=== PATIENT | male | born 1960 | race African-American/Black ===

== ENCOUNTER 2016-11-19 11:54 | Emergency (ER) | payer OTHER ==
[2016-11-19 12:08] VITALS: RESP 16; TEMP 97.3
--- NOTE | 2016-11-19 12:44 | EDPHY ---
H & P Time Seen by Provider: 11/19/16 12:03 HPI/ROS: CHIEF COMPLAINT: Low back pain HISTORY OF PRESENT ILLNESS: Patient has had intermittent low back pain on and off since the weight lifting incident 20 years ago. It has been pretty consistent over the last week located in the lower mid back radiates to right and left. Not associated with weakness or numbness in extremities or incontinence. Severity is 10/10 and he saw his physician at the [facility] on Monday and then on Monday yesterday was started on steroids and oral hydrocodone. He presents with continued pain. It is much worse with movement and not associated with fevers or chills. REVIEW OF SYSTEMS: Eye: no change in vision ENT: no sore throat Cardiac: no chest pain or syncope Pulmonary: no cough or SOB Abdomen: no vomiting, diarrhea, abdominal pain Musculoskeletal: HPI, no recent traumatic injury. Skin: no rash Neuro: no headache Constitutional: no fever : no urinary symptoms A comprehensive 10 point review of systems is otherwise negative aside from elements mentioned in the history of present illness. PAST MEDICAL HISTORY: Back pain, no previous surgery Social history: No IV drug abuse General Appearance: Alert and conversant, cooperative. Eyes: No scleral icterus. ENT, Mouth: Normal mucous membranes. Respiratory: Normal respiratory effort, breath sounds equal, lungs are clear to auscultation. Cardiovascular: Regular rate and rhythm. Gastrointestinal: Abdomen is soft and non tender. No pulsatile mass. Neurological: Alert and oriented x3. Normally conversant. Face symmetric, normal movement and sensation in all extremities. Patellar reflexes 1+ and ankle reflexes 1+, toes downgoing bilaterally, both sides of 45 degrees. Skin: Warm and dry, no rashes. Musculoskeletal: Paraspinal muscle tenderness at the L4-5 region, no midline spinal tenderness. Psychiatric: Not agitated. Emergency Department course/MDM: More likely musculoskeletal, I think that acute neurosurgical emergency is unlikely at this point in time. He does not have red flags to suggest high risk for epidural abscess or central infection. Lumbar spine x-rays ordered because of age. Procedure: Trigger point injection Indication is refractory back pain Risk benefit alternatives discussed and consented with the patient. Standard sterile technique a total of 10 mL is of 0.25% bupivacaine were injected into the areas of greatest tenderness in both the left and right paraspinal areas near the L4-5 region. Patient tolerated procedure well. 1307: Results discussed, patient moving more easily on the bed now. He is requesting additional hydrocodone to get him through Monday. I was unable to access [facility]. I told him I would write him a prescription for 7. Encouraged to continue [facility]. Smoking Status: Heavy smoker Constitutional: Initial Vital Signs Temperature (C) 36.3 C 11/19/16 12:03 Heart Rate 83 11/19/16 12:03 Respiratory Rate 16 11/19/16 12:03 Blood Pressure 137/79 H 11/19/16 12:03 O2 Sat (%) 97 11/19/16 12:03 O2 Delivery Mode Room Air Allergies/Adverse Reactions: No Known Allergies Allergy (Verified 11/19/16 12:00) Home Medications: Medication Instructions Recorded Flexeril 11/19/16 Hydrocodone/APAP 5/325 11/19/16 Hydrocodone/APAP 5/325 [[place] 1 tab PO Q4-6PRN PRN #7 tab 11/19/16 5/325] Medrol Dose Evert 11/19/16 Meloxicam 11/19/16 Medical Decision Making Differential Diagnosis: Differential diagnosis considered for back pain including but not limited to muscular pain, herniated disc, spine fracture, intra-abdominal causes and urinary tract infection. Departure - Departure Disposition: Home, Routine, Self-Care Clinical Impression: Acute low back pain Qualifiers: Back pain laterality: bilateral Sciatica presence: without sciatica Qualified Code(s): M54.5 - Low back pain Condition: Good Instructions: Hydrocodone/Acetaminophen (By mouth), Acute Low Back Pain (ED) Additional Instructions: Continue medications as prescribed. Return if you get worsening or severe pain, fever, trouble with movement or feeling in either leg, or incontinence. [facility]] - As per Instructions Prescriptions: Hydrocodone/APAP 5/325 [[place] 5/325] 1 tab PO Q4-6PRN PRN #7 tab PRN Reason: For Pain
[2016-11-19 13:18] VITALS: BP 138/94; PULSE 76; O2SAT 94
== END 2016-11-19 13:19 | disposition home or self-care (01) ==
LOC: CED 11:54
PROC: 3E023BZ Introduction of Anesthetic Agent into Muscle, Percutaneous Approach (ICD-10-PCS; principal; 2016-11-19)
DX: M54.5 Low back pain (principal); F17.200 Nicotine dependence, unspecified, uncomplicated
CPT/HCPCS: 72100-PO